=== PATIENT | female | born 1985 | race African-American/Black ===

== ENCOUNTER 2019-01-10 20:40 | Inpatient (IN) | payer MEDICAID ==
[2019-01-10] MEDS ORDERED: ACETAMINOPHEN 325 MG TABLET PO ONE (21:06)
[2019-01-10] MEDS ORDERED: NORMAL SALINE 1000 ML 1,000 ML IV ONE (21:07)
--- NOTE | 2019-01-10 21:09 | ER Document Report ---
ED Medical Screen (RME) - General Chief Complaint: Fever Stated Complaint: FEVER,POSS HSV OUTBREAK Time Seen by Provider: 01/10/19 21:05 Notes: 33-year-old female chief complaint of fevers, generalized body aches, occasional mild shortness of breath, some mild bloating of the abdomen. She states she has had fevers for the past 2 weeks. In [place], diagnosed with "herpes outbreak and viral meningitis", states that she did have a stiff neck and headache at that time but this did resolve. She states she felt better for a couple of days and now worse. Denies history of IV drug abuse. Other than HSV she states she was told she had polymyalgia rheumatica 10 years ago and was on a short course of prednisone but nothing since. TRAVEL OUTSIDE OF THE [place] IN LAST 30 DAYS: No - Related Data Allergies/Adverse Reactions: lisinopril Allergy (Verified 01/10/19 21:05) Penicillins Allergy (Verified 01/10/19 21:05) Past Medical History - Social History Chew tobacco use (# tins/day): No Frequency of alcohol use: None Drug Abuse: None Renal/ Medical History: Denies: Hx Peritoneal Dialysis Physical Exam - Vital signs Vitals: Temp Pulse Resp BP Pulse Ox 103.1 F H 132 H 17 131/79 H 96 01/10/19 20:47 01/10/19 20:47 01/10/19 20:47 01/10/19 20:47 01/10/19 20:47 - General General appearance: Appears well, Alert - Respiratory Respiratory status: No respiratory distress Breath sounds: No: Decreased air movement, Wheezing - Cardiovascular Rhythm: Regular, Tachycardia Heart sounds: Normal auscultation, S1 appreciated, S2 appreciated Course - Re-evaluation Re-evalutation: I have greeted and performed a rapid initial assessment of this patient. A comprehensive ED assessment and evaluation of the patient, analysis of test results and completion of the medical decision making process will be conducted by additional ED providers. - Vital Signs Vital signs: Temp Pulse Resp BP Pulse Ox 103.1 F H 132 H 17 131/79 H 96 01/10/19 20:47 01/10/19 20:47 01/10/19 20:47 01/10/19 20:47 01/10/19 20:47
--- NOTE | 2019-01-10 21:43 | RADIOLOGY REPORT (SQ) ---
EXAM DESCRIPTION: XR CHEST 2 VIEWS COMPLETED DATE/TME: 01/10/2019 21:05 CLINICAL HISTORY: 33 years, Female, ongoing fever Comparison: None FINDINGS: No focal lung consolidation. No pleural effusion. No pneumothorax. Cardiac and mediastinal silhouette is unremarkable. No acute osseous abnormality. Soft tissues are unremarkable. IMPRESSION: No acute findings. No focal lung consolidation.
--- NOTE | 2019-01-10 22:02 | ER Document Report ---
ED General - General Chief Complaint: Fever Stated Complaint: FEVER,POSS HSV OUTBREAK Time Seen by Provider: 01/10/19 21:05 Notes: Patient is a 33-year-old female with a past medical history of polymyalgia rheumatica not on any active treatment who presents due to concerns of ongoing fever for the past 2 to 3 weeks as well as a recent diagnosis of HSV "meningitis". Patient reports that 3 weeks ago she was seen in the emergency department in [place]. An infectious disease specialist was consulted as she had a fever with labial herpes as well as a headache and neck pain. 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 Patient completed that course effectively at noon today. She states that however over the last 2 weeks she is continued to have fever and has increasing shortness of breath and chest discomfort over the last 36 to 72 hours. She describes this as a aching, constant chest discomfort and that her shortness of breath is pervasive worsened with exertion. Nothing seems to improve her symptoms. She adamantly denies any ongoing headache or neck pain and states that her labial lesions have completely resolved. States that headache and neck pain resolved at least 5 to 6 days ago and have not recurred since that time. She has no history of similar symptoms in the past. Denies any cardiac history or history of pulmonary embolism. TRAVEL OUTSIDE OF THE [place] IN LAST 30 DAYS: No - Related Data Allergies/Adverse Reactions: lisinopril Allergy (Verified 01/10/19 21:05) Penicillins Allergy (Verified 01/10/19 21:05) Past Medical History - General Information source: Patient - Social History Smoking Status: Never Smoker Chew tobacco use (# tins/day): No Frequency of alcohol use: None Drug Abuse: None Lives with: Spouse/Significant other Family History: Reviewed & Not Pertinent Patient has suicidal ideation: No Patient has homicidal ideation: No Renal/ Medical History: Denies: Hx Peritoneal Dialysis Review of Systems - Review of Systems Notes: Constitutional: Positive for fever. HENT: Negative for sore throat. Eyes: Negative for visual changes. Cardiovascular: Positive for chest pain. Respiratory: Positive for shortness of breath Gastrointestinal: Negative for abdominal pain, vomiting or diarrhea. Genitourinary: Negative for dysuria. Musculoskeletal: Negative for back pain. Skin: Negative for rash. Neurological: Negative for headaches, weakness or numbness. 10 point ROS negative except as marked above and in HPI. Physical Exam - Vital signs Vitals: Temp Pulse Resp BP Pulse Ox 103.1 F H 132 H 17 131/79 H 96 01/10/19 20:47 01/10/19 20:47 01/10/19 20:47 01/10/19 20:47 01/10/19 20:47 Interpretation: Tachycardic, Febrile Notes: PHYSICAL EXAMINATION: GENERAL: Appears well and in no overt distress. HEAD: Atraumatic, normocephalic. EYES: Pupils equal round and reactive to light, extraocular movements intact, sclera anicteric, conjunctiva are normal. ENT: nares patent, oropharynx clear without exudates. Mildly dry mucous membranes. NECK: Normal range of motion, supple without lymphadenopathy LUNGS: Breath sounds clear to auscultation bilaterally and equal. No wheezes rales or rhonchi. HEART: Regular tachycardia without murmurs ABDOMEN: Soft, nontender, normoactive bowel sounds. No guarding, no rebound. No masses appreciated. EXTREMITIES: Normal range of motion, no pitting or edema. No cyanosis. NEUROLOGICAL: No focal neurological deficits. Moves all extremities spontaneou sly and on command. PSYCH: Normal mood, normal affect. SKIN: Warm, Dry, normal turgor, no rashes or lesions noted. Course - Re-evaluation Re-evalutation: 01/10/19 22:00 Patient presents with unusual history of having been chronically diagnosed with an agency for the meningitis 3 weeks ago in [place] after having a primary HSV outbreak in the labial region. She states that she was seen by infectious disease specialist in the emergency department setting of an LP was not performed and hospitalization was not advised. She has completed a full 14-day course of valacyclovir twice daily last dose at approximately noon today. She does note that the headache and neck pain that she had several weeks ago has ultimately resolved she is continued to have intermittent fevers throughout the duration of the last 2 weeks and the fevers escalated today. On exam the patient is extremely well in appearance alert, oriented mentating complete normally. She has no focal neurologic deficits on examination. She has no meningismus, normal neck range of motion. She denies any ongoing symptoms that would suggest a diagnosis of HSV encephalitis or meningitis. The patient is primarily complaining about shortness of breath abdominal bloating. She states that her breathing feels heavy. She is tachycardic and febrile at time of presentation. Chest x-ray does not demonstrate any evidence of associated pneumonia. She does not have a cough. Pulmonary embolus would also be on the differential although her temperature is quite high for this diagnosis. D-dimer will be sent for initial evaluation. Will obtain blood cultures, urine, urine cultures and standard laboratory panel. I do not believe the patient requires a repeat lumbar puncture at this point as she has no symptoms to suggest an acute meningitis or encephalitis picture and is already completed a full treatment course for HSV meningitis. She also reports that her labial lesions have completely resolved. 2300-patient remains tachycardic, normotensive, saturating 98% on room air. Continuing to rest without any overt discomfort. Labs are pending 2330-labs demonstrate a market elevation of d-dimer but are otherwise unremarkable. Patient will be sent for CTA of the chest as well as CT the abdomen pelvis given her complaints of associated abdominal pain 01/11/19 04:19 Documentation summarized from the last 2 hours. In summary the patient's CT of the chest was read and reviewed by me, does demonstrate a large pericarditis without significant drainable pericardial effusion. Also shows a possible left lower lobe pneumonia. I did discuss these findings with the patient. I then contacted the hospitalist Dr. Rhodes and reviewed the complex nature of the case as well as the need for hospitalization. He did request that I speak to cardiology. I did speak with the boat operator on-call who agrees that the patient is appropriate for hospitalization here at [facility]. Has requested echocardiogram, inflammatory markers and initiation of colchicine for treatment. I did discuss these recommendations with Dr. Rhodes who has now accept the patient for hospitalization. - Vital Signs Vital signs: Temp Pulse Resp BP Pulse Ox 99 F 77 18 108/69 100 01/11/19 01:18 01/11/19 01:18 01/11/19 01:18 01/11/19 01:18 01/11/19 01:18 - Laboratory Result Diagrams: 01/10/19 22:00 01/10/19 22:00 Laboratory results interpreted by me: 01/10/19 01/10/19 01/10/19 22:00 22:00 22:00 RBC 2.95 L Hgb 8.9 L Hct 26.5 L Seg Neutrophils % 78.6 H Lymphocytes % 10.4 L D-Dimer 7.62 H Sodium 133.1 L Glucose 111 H Urine Blood 01/10/19 22:00 RBC Hgb Hct Seg Neutrophils % Lymphocytes % D-Dimer Sodium Glucose Urine Blood MODERATE H - Diagnostic Test Radiology reviewed: Reports reviewed Critical Care Note - Critical Care Note Total time excluding time spent on procedures (mins): 36 Comments: Critical care time spent obtaining history from patient or surrogate, discussions with consultants, development of treatment plan with patient or surrogate, evaluation of patient's response to treatment, examination of patient, ordering and performing treatments and interventions, ordering and review of laboratory studies, re-evaluation of patient's condition, ordering and review of radiographic studies and review of old charts Discharge - Discharge Clinical Impression: Pericarditis Qualifiers: Pericarditis type: unspecified type Chronicity: acute Qualified Code(s): I30.9 - Acute pericarditis, unspecified Sepsis Qualifiers: Sepsis type: sepsis due to unspecified organism Qualified Code(s): A41.9 - Sepsis, unspecified organism Left lower lobe pneumonia Qualifiers: Pneumonia type: due to unspecified organism Qualified Code(s): J18.1 - Lobar pneumonia, unspecified organism Condition: Fair Disposition: ADMITTED INPATIENT Admitting Provider: Carmelo (Hospitalist) Unit Admitted: Telemetry
[2019-01-10 22:42] LABS: ABSOLUTE BASOPHILS # (AUTO) 0.1 10^3/uL (0.0-0.2); ABSOLUTE LYMPHOCYTES (AUTO) 1.1 10^3/uL (0.5-4.7); ABSOLUTE NEUT (AUTO) 7.9 10^3/uL (1.7-8.2); BASOPHILS % (AUTO) 0.6 % (0-2); EOSINOPHILS % (AUTO) 0.1 % (0-6); HEMATOCRIT 26.5 % (36.0-47.0); HEMOGLOBIN 8.9 g/dL (12.0-15.5); LYMPHOCYTES % (AUTO) 10.4 % (13-45); MEAN CORPUSCULAR HEMOGLOBIN 30.3 pg (27.0-33.4); MEAN CORPUSCULAR HGB CONC 33.7 g/dL (32.0-36.0); MEAN CORPUSCULAR VOLUME 90 fl (80-97); MONOCYTES % (AUTO) 10.3 % (3-13); PLATELET COUNT 444 10^3/uL (150-450); RED BLOOD COUNT 2.95 10^6/uL (3.72-5.28); SEGMENTED NEUTROPHILS % (AUTO) 78.6 % (42-78); TOTAL CELLS COUNTED % (AUTO) 100 %; WHITE BLOOD COUNT 10.1 10^3/uL (4.0-10.5)
[2019-01-10 22:48] LABS: APPEARANCE,URINE CLEAR; BILIRUBIN,URINE NEGATIVE (NEGATIVE); COLOR,URINE STRAW; GLUCOSE, URINE NEGATIVE (NEGATIVE); KETONES,URINE NEGATIVE (NEGATIVE); LEUKOCYTE ESTERASE,URINE NEGATIVE (NEGATIVE); NITRITE,URINE NEGATIVE (NEGATIVE); PROTEIN,URINE NEGATIVE (NEGATIVE); URINE SPECIFIC GRAVITY 1.003; UROBILINOGEN,URINE NEGATIVE mg/dL (<2.0)
[2019-01-10 23:06] LABS: ALANINE AMINOTRANSFERASE 29 U/L (9-52); ALBUMIN 3.5 g/dL (3.5-5.0); ALKALINE PHOSPHATASE 53 U/L (38-126); ANION GAP 11 (5-19); ASPARTATE AMINO TRANSFERASE 16 U/L (14-36); BILIRUBIN,DIRECT 0.3 mg/dL (0.0-0.4); BILIRUBIN,TOTAL 0.7 mg/dL (0.2-1.3); BLOOD UREA NITROGEN 8 mg/dL (7-20); CALCIUM 8.8 mg/dL (8.4-10.2); CARBON DIOXIDE 24 mmol/L (22-30); CHLORIDE 98 mmol/L (98-107); GLUCOSE 111 mg/dL (75-110); POTASSIUM 4.2 mmol/L (3.6-5.0); SODIUM 133.1 mmol/L (137-145); TOTAL PROTEIN 7.3 g/dL (6.3-8.2)
[2019-01-10 23:19] LABS: VENOUS BLOOD BASE EXCESS -1.2 mmol/L; VENOUS BLOOD HCO3 23.4 mmol/L (20-32); VENOUS BLOOD PCO2 38.9 mmHg (35-63); VENOUS BLOOD PH 7.4 (7.30-7.42)
--- NOTE | 2019-01-11 03:40 | RADIOLOGY REPORT (SQ) ---
EXAM DESCRIPTION: CT CHEST ANGIOGRAPHY WITHOUT THEN WITH IV CONTRAST, CT ABDOMEN PELVIS WITH IV CONTRAST COMPLETED DATE/TME: 01/11/2019 00:13 CLINICAL HISTORY: 33 years Female, eval pulm embolus, fever/cp/ab pain Comparison: None. Technique: IV contrast. Axial. 3-D reformat of the pulmonary arteries. This exam was performed according to our departmental dose-optimization program, which includes automated exposure control, adjustment of the mA and/or kV according to patient size and/or use of iterative reconstruction technique. [facility]: Dose Right [facility]: CareDose [facility]: Dose Right [facility]: Teradose 4D [facility]: [employer] LIMITATIONS: Quality of pulmonary arteriogram: Suboptimal. No coronal and sagittal reformats at this time. Findings: Small pericholecystic fluid. No pulmonary embolus. No right ventricular strain. Moderate left lower lobar dependent consolidated. Small streaky opacity of the right lower lobe. Small left pleural effusion. Moderate to large pericardial effusion. Small free pelvic fluid. . Large fibroid uterus with likely 6.4 cm exophytic subserosal fibroid extending to the right upper pelvis. 4.2 cm left adnexal cyst almost certainly benign. No ascites. Appendicolith(s) and/or retained contrast. No evidence of appendicitis. Inferior neck, axillae, mediastinum, airway, liver, pancreas, spleen, adrenals, renal system, gastrointestinal tract, pelvic organs, lymphatics, vasculature, and musculoskeleton appear otherwise unremarkable. Impression: 1. Small bilateral lower lobar pneumonia/atelectasis. Small left pleural effusion. 2. Moderate to large pericardial effusion/pericarditis. Differential etiologies include iatrogenic, inflammatory, metabolic, neoplastic, drug reaction, and trauma. 3. Small pericholecystic fluid. Small pelvic free fluid. 4. Large fibroid uterus with probable 6.4 cm right fundal exophytic component. Recommend ultrasound correlation.
[2019-01-11] MEDS ORDERED: KETOROLAC TROMETHAMINE INJ/PF 30 MG/1 ML SDV IV ONE ×2 (04:01→04:30)
[2019-01-11] MEDS ORDERED: COLCHICINE 0.6 MG TABLET PO ONE ×2 (04:01→04:30)
[2019-01-11] MEDS ORDERED: MAGNESIUM HYDROXIDE SUSP 30 ML UDCUP PO PRN (04:02)
[2019-01-11] MEDS ORDERED: MAG HYDROX/AL HYDROX/SIMETH SUSP 30 ML UDCUP PO PRN (04:02)
[2019-01-11] MEDS ORDERED: ACETAMINOPHEN 325 MG TABLET PO PRN (04:02)
[2019-01-11] MEDS ORDERED: IPRATROPIUM/ALBUTEROL 0.5-2.5 MG/3 ML AMPUL NEB PRN (04:02)
[2019-01-11] MEDS ORDERED: NORMAL SALINE 1000 ML 1,000 ML IV SCH (04:15)
[2019-01-11] MEDS ORDERED: KETOROLAC TROMETHAMINE INJ/PF 30 MG/1 ML SDV ONE (04:36)
[2019-01-11 05:09] LABS: CREATINE KINASE MB < 0.22 ng/mL (<4.55); TROPONIN I < 0.012 ng/mL
[2019-01-11 05:57] LABS: ABSOLUTE RETICS # 0.043 10^6/uL (0.028-0.122); RETICULOCYTE COUNT (AUTO) 1.38 % (0.66-2.85)
[2019-01-11 06:03] LABS: IRON(TIBC) 15.3 ug/dL (37-170)
--- NOTE | 2019-01-11 06:27 | PDOC H&P ---
History of Present Illness Admission Date/PCP: 01/11/19 04:45 MERLY SHINE MD Patient complains of: Shortness of breath and chest pain History of Present Illness: GAVIOTA PEÑA is a 33 year old female with a past medical history of questionable polymyalgia rheumatica who was diagnosed with primary genital HSV outbreak 3 weeks ago placed on acyclovir followed by HSV meningitis 2 weeks ago without LP. She presents with 10 days of shortness of breath and sharp retrosternal chest pain exacerbated by deep breathing. Symptoms were intermittently improved with Tylenol and ibuprofen but she is developed fever and fatigue prompting evaluation emergency room where she is found to have fever of 103.1, microcytic anemia, pericarditis by CTA chest. She is referred to the hospitalist for admission. Patient denies previous episode denies family history of autoimmune disease. Only new medication includes acyclovir discontinued 1 week ago. Past Medical History Cardiac Medical History: Reports: Hypertension Social History Information Source: Patient Lives with: Spouse/Significant other Smoking Status: Never Smoker Frequency of Alcohol Use: Rare Drugs: None - Advance Directive Resuscitation Status: Full Code Family History Family History: Other - Multiple sclerosis Parental Family History Reviewed: Yes Children Family History Reviewed: Yes Sibling(s) Family History Reviewed.: Yes Medication/Allergy Allergies/Adverse Reactions: lisinopril Allergy (Verified 01/10/19 21:05) Penicillins Allergy (Verified 01/10/19 21:05) Review of Systems Constitutional: PRESENT: as per HPI, anorexia, chills, fatigue, fever(s), headache(s). ABSENT: night sweats Eyes: ABSENT: visual disturbances Ears: ABSENT: hearing changes Cardiovascular: PRESENT: as per HPI, chest pain, dyspnea on exertion. ABSENT: edema, orthropnea, palpitations Respiratory: PRESENT: as per HPI, dyspnea. ABSENT: cough, hemoptysis, sputum Gastrointestinal: ABSENT: abdominal pain, constipation, diarrhea, hematemesis, hematochezia, nausea, vomiting Genitourinary: PRESENT: as per HPI. ABSENT: dysuria, hematuria Musculoskeletal: ABSENT: joint swelling Integumentary: ABSENT: rash, wounds Neurological: ABSENT: abnormal gait, abnormal speech, confusion, dizziness, focal weakness, syncope Psychiatric: ABSENT: anxiety, depression, homidical ideation, suicidal ideation Endocrine: ABSENT: cold intolerance, heat intolerance, polydipsia, polyuria Hematologic/Lymphatic: ABSENT: easy bleeding, easy bruising Physical Exam Vital Signs: Temp Pulse Resp BP Pulse Ox 99.7 F 101 H 20 120/82 96 01/11/19 05:53 01/11/19 05:53 01/11/19 05:53 01/11/19 05:53 01/11/19 05:53 Intake & Output 01/09/19 01/10/19 01/11/19 11:59 11:59 11:59 Intake Total 1000 Balance 1000 Weight 83.5 kg General appearance: PRESENT: cooperative, mild distress Head exam: PRESENT: atraumatic, normocephalic Eye exam: PRESENT: conjunctiva pink, EOMI, PERRLA. ABSENT: scleral icterus Ear exam: PRESENT: normal external ear exam Mouth exam: PRESENT: moist, tongue midline Neck exam: ABSENT: carotid bruit, JVD, lymphadenopathy, thyromegaly Respiratory exam: PRESENT: clear to auscultation christopher, crackles, decreased breath sounds. ABSENT: rales, rhonchi, wheezes Cardiovascular exam: PRESENT: RRR, rubs, +S1, +S2, systolic murmur, tachycardia Vascular exam: PRESENT: normal capillary refill GI/Abdominal exam: PRESENT: normal bowel sounds, soft. ABSENT: distended, guarding, mass, organolmegaly, rebound, tenderness Rectal exam: PRESENT: deferred Extremities exam: PRESENT: full ROM. ABSENT: calf tenderness, clubbing, pedal edema Neurological exam: PRESENT: alert, awake, oriented to person, oriented to place, oriented to time, oriented to situation, CN II-XII grossly intact. ABSENT: motor sensory deficit Psychiatric exam: PRESENT: appropriate affect, normal mood. ABSENT: homicidal ideation, suicidal ideation Skin exam: PRESENT: dry, intact, warm. ABSENT: cyanosis, rash Results Laboratory Results: 01/10/19 22:00 01/10/19 22:00 01/10/19 01/10/19 01/10/19 22:00 22:00 22:00 WBC 10.1 RBC 2.95 L Hgb 8.9 L Hct 26.5 L MCV 90 MCH 30.3 MCHC 33.7 RDW 13.0 Plt Count 444 Seg Neutrophils % 78.6 H Lymphocytes % 10.4 L Monocytes % 10.3 Eosinophils % 0.1 Basophils % 0.6 Absolute Neutrophils 7.9 Absolute Lymphocytes 1.1 Absolute Monocytes 1.0 Absolute Eosinophils 0.0 Absolute Basophils 0.1 Retic Count (auto) Absolute Retic VBG pH VBG pCO2 VBG HCO3 VBG Base Excess Sodium 133.1 L Potassium 4.2 Chloride 98 Carbon Dioxide 24 Anion Gap 11 BUN 8 Creatinine 0.58 Est GFR ( Amer) > 60 Est GFR (Non-Af Amer) > 60 Glucose 111 H Lactic Acid Calcium 8.8 Total Bilirubin 0.7 AST 16 ALT 29 Alkaline Phosphatase 53 C-Reactive Protein Total Protein 7.3 Albumin 3.5 Urine Color STRAW Urine Appearance CLEAR Urine pH 7.0 Ur Specific Anna 1.003 Urine Protein NEGATIVE Urine Glucose (UA) NEGATIVE Urine Ketones NEGATIVE Urine Blood MODERATE H Urine Nitrite NEGATIVE Ur Leukocyte Esterase NEGATIVE Urine WBC (Auto) 0 Urine RBC (Auto) 1 01/10/19 01/10/19 01/11/19 23:00 23:00 04:10 WBC RBC Hgb Hct MCV MCH MCHC RDW Plt Count Seg Neutrophils % Lymphocytes % Monocytes % Eosinophils % Basophils % Absolute Neutrophils Absolute Lymphocytes Absolute Monocytes Absolute Eosinophils Absolute Basophils Retic Count (auto) Absolute Retic VBG pH 7.40 VBG pCO2 38.9 VBG HCO3 23.4 VBG Base Excess -1.2 Sodium Potassium Chloride Carbon Dioxide Anion Gap BUN Creatinine Est GFR ( Amer) Est GFR (Non-Af Amer) Glucose Lactic Acid 0.7 Calcium Total Bilirubin AST ALT Alkaline Phosphatase C-Reactive Protein 210.4 H Total Protein Albumin Urine Color Urine Appearance Urine pH Ur Specific Anna Urine Protein Urine Glucose (UA) Urine Ketones Urine Blood Urine Nitrite Ur Leukocyte Esterase Urine WBC (Auto) Urine RBC (Auto) 01/11/19 04:10 WBC RBC Hgb Hct MCV MCH MCHC RDW Plt Count Seg Neutrophils % Lymphocytes % Monocytes % Eosinophils % Basophils % Absolute Neutrophils Absolute Lymphocytes Absolute Monocytes Absolute Eosinophils Absolute Basophils Retic Count (auto) 1.38 Absolute Retic 0.043 VBG pH VBG pCO2 VBG HCO3 VBG Base Excess Sodium Potassium Chloride Carbon Dioxide Anion Gap BUN Creatinine Est GFR ( Amer) Est GFR (Non-Af Amer) Glucose Lactic Acid Calcium Total Bilirubin AST ALT Alkaline Phosphatase C-Reactive Protein Total Protein Albumin Urine Color Urine Appearance Urine pH Ur Specific Anna Urine Protein Urine Glucose (UA) Urine Ketones Urine Blood Urine Nitrite Ur Leukocyte Esterase Urine WBC (Auto) Urine RBC (Auto) 01/11/19 01/11/19 04:10 04:10 Creatine Kinase 35 CK-MB (CK-2) < 0.22 Troponin I < 0.012 Impressions: Chest X-Ray 01/10/19 21:05 IMPRESSION: No acute findings. No focal lung consolidation. Assessment and Plan - Diagnosis (1) Left lower lobe pneumonia Qualifiers: Pneumonia type: due to unspecified organism Qualified Code(s): J18.1 - Lobar pneumonia, unspecified organism Is this a current diagnosis for this admission?: Yes Plan: Empiric antibiotics, albuterol and Atrovent, incentive spirometry follow-up blood culture and CBC (2) Pericarditis Qualifiers: Pericarditis type: unspecified type Chronicity: acute Qualified Code(s): I30.9 - Acute pericarditis, unspecified Is this a current diagnosis for this admission?: Yes Plan: With pleuritic chest pain and spectacular pericardial rub on auscultation. Infectious versus autoimmune, colchicine, IV Toradol initiated. Follow-up antineutrophil labs, echocardiogram and cardiology consult. (3) Sepsis Qualifiers: Sepsis type: sepsis due to unspecified organism Qualified Code(s): A41.9 - Sepsis, unspecified organism Is this a current diagnosis for this admission?: Yes Plan: Secondary to #1, IV fluid challenge, empiric antibiotics, follow-up blood culture - Time Time Spent with patient: 35 or more minutes - Inpatient Certification Medical Necessity: Need Close Monitoring Due to Risk of Patient Decompensation
[2019-01-11] MEDS ORDERED: LEVOFLOXACIN 750 MG/D5W RTU 750 MG/150 ML RTUPB IV ONE ×2 (07:00→12:00)
--- NOTE | 2019-01-11 07:59 | EKG REPORT ---
SEVERITY:- BORDERLINE ECG - SINUS TACHYCARDIA BORDERLINE T ABNORMALITIES, ANT-LAT LEADS : Confirmed by: Mervat Wheeler MD 11-Jan-2019 07:58:34
[2019-01-11] MEDS ORDERED: KETOROLAC TROMETHAMINE INJ/PF 30 MG/1 ML SDV IV SCH (09:00)
[2019-01-11] MEDS ORDERED: COLCHICINE 0.6 MG TABLET PO SCH (10:00)
[2019-01-11] MEDS: DOCUSATE SODIUM 100 MG CAPSULE PO SCH ×2 (10:27→18:25)
--- NOTE | 2019-01-11 10:39 | PDOC CONSULTATION ---
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 Couple of weeks ago patient was in [place] and was diagnosed with HSV meningitis and completed a course of antiviral therapy for 14 days. She claims that the symptoms she had with meningitis have resolved which included a headache stiff neck but a week into the treatment she started developing shortness of breath and discomfort in chest on deep breathing. She also developed fever every day for which she was taking ibuprofen and acetaminophen alternately. She came in last night to the ER with worsening shortness of breath and had a CAT scan of the chest done which revealed moderate large pericardial effusion. At this time she denies any chest pain or acute shortness of breath and seems to be resting comfortably in bed. She does report feeling better when she is upright rather than lying down flat as far as her breathing is concerned. She does complain of mild abdominal bloating but no nausea vomiting or abdominal pain. She also claims that more than 10 years ago she had developed a viral illness with diffuse body aches and at that time was seen in [place] and diagnosed with polymyalgia rheumatica for which she was treated with prednisone for a month or so and then prednisone was tapered off. She denies history of cigarette smoking or alcohol abuse or any recreational drug use. She is single at this time and works as a package designer. She claims that 1 of her uncles had heart disease in his 50s and his paternal grandfather also had heart disease. Past Medical History Cardiac Medical History: Reports: Hypertension Hematology: Reports: Anemia Past Surgical History Past Surgical History: Reports: Splenectomy, Other - Partial pancreatectomy for pancreatic cyst Social History Lives with: Spouse/Significant other Smoking Status: Never Smoker Frequency of Alcohol Use: Rare Drugs: None - Advance Directive Resuscitation Status: Full Code Family History Family History: Reviewed & Not Pertinent, Other - Multiple sclerosis Parental Family History Reviewed: Yes Children Family History Reviewed: No Sibling(s) Family History Reviewed.: No Medication/Allergy Home Medications: Amlodipine Besylate [Norvasc 5 mg Tablet] 5 mg PO DAILY 01/11/19 Norethindrone [Davida] 0.35 mg PO DAILY 01/11/19 Allergies/Adverse Reactions: lisinopril Allergy (Verified 01/10/19 21:05) Penicillins Allergy (Verified 01/10/19 21:05) Review of Systems Constitutional: PRESENT: fever(s) Cardiovascular: PRESENT: chest pain, dyspnea on exertion, orthropnea Gastrointestinal: PRESENT: bloating Physical Exam Vital Signs: Temp Pulse Resp BP Pulse Ox 98.2 F 113 H 12 125/89 H 97 01/11/19 08:31 01/11/19 07:59 01/11/19 08:31 01/11/19 08:31 01/11/19 07:46 Intake & Output 01/10/19 01/11/19 01/12/19 06:59 06:59 06:59 Intake Total 1000 Balance 1000 Weight 83.5 kg 83.178 kg General appearance: PRESENT: no acute distress Head exam: PRESENT: atraumatic, normocephalic Neck exam: PRESENT: full ROM - No JVD noted. Respiratory exam: PRESENT: clear to auscultation christopher - Pericardial rub heard. Pulses: PRESENT: normal carotid pulses, +2 pedal pulses bilateral Vascular exam: PRESENT: normal capillary refill GI/Abdominal exam: PRESENT: normal bowel sounds, soft Extremities exam: PRESENT: full ROM Neurological exam: PRESENT: alert, oriented to person, oriented to place, oriented to time, CN II-XII grossly intact Results Laboratory Results: 01/10/19 22:00 01/10/19 22:00 01/10/19 01/10/19 01/10/19 22:00 22:00 22:00 WBC 10.1 RBC 2.95 L Hgb 8.9 L Hct 26.5 L MCV 90 MCH 30.3 MCHC 33.7 RDW 13.0 Plt Count 444 Seg Neutrophils % 78.6 H Lymphocytes % 10.4 L Monocytes % 10.3 Eosinophils % 0.1 Basophils % 0.6 Absolute Neutrophils 7.9 Absolute Lymphocytes 1.1 Absolute Monocytes 1.0 Absolute Eosinophils 0.0 Absolute Basophils 0.1 Retic Count (auto) Absolute Retic VBG pH VBG pCO2 VBG HCO3 VBG Base Excess Sodium 133.1 L Potassium 4.2 Chloride 98 Carbon Dioxide 24 Anion Gap 11 BUN 8 Creatinine 0.58 Est GFR ( Amer) > 60 Est GFR (Non-Af Amer) > 60 Glucose 111 H Lactic Acid Calcium 8.8 Iron TIBC % Saturation Ferritin Total Bilirubin 0.7 AST 16 ALT 29 Alkaline Phosphatase 53 C-Reactive Protein Total Protein 7.3 Albumin 3.5 Vitamin B12 Folate Urine Color STRAW Urine Appearance CLEAR Urine pH 7.0 Ur Specific [place] 1.003 Urine Protein NEGATIVE Urine Glucose (UA) NEGATIVE Urine Ketones NEGATIVE Urine Blood MODERATE H Urine Nitrite NEGATIVE Ur Leukocyte Esterase NEGATIVE Urine WBC (Auto) 0 Urine RBC (Auto) 1 01/10/19 01/10/19 01/11/19 23:00 23:00 04:10 WBC RBC Hgb Hct MCV MCH MCHC RDW Plt Count Seg Neutrophils % Lymphocytes % Monocytes % Eosinophils % Basophils % Absolute Neutrophils Absolute Lymphocytes Absolute Monocytes Absolute Eosinophils Absolute Basophils Retic Count (auto) Absolute Retic VBG pH 7.40 VBG pCO2 38.9 VBG HCO3 23.4 VBG Base Excess -1.2 Sodium Potassium Chloride Carbon Dioxide Anion Gap BUN Creatinine Est GFR ( Amer) Est GFR (Non-Af Amer) Glucose Lactic Acid 0.7 Calcium Iron TIBC % Saturation Ferritin Total Bilirubin AST ALT Alkaline Phosphatase C-Reactive Protein 210.4 H Total Protein Albumin Vitamin B12 Folate Urine Color Urine Appearance Urine pH Ur Specific [place] Urine Protein Urine Glucose (UA) Urine Ketones Urine Blood Urine Nitrite Ur Leukocyte Esterase Urine WBC (Auto) Urine RBC (Auto) 01/11/19 01/11/19 04:10 04:10 WBC RBC Hgb Hct MCV MCH MCHC RDW Plt Count Seg Neutrophils % Lymphocytes % Monocytes % Eosinophils % Basophils % Absolute Neutrophils Absolute Lymphocytes Absolute Monocytes Absolute Eosinophils Absolute Basophils Retic Count (auto) 1.38 Absolute Retic 0.043 VBG pH VBG pCO2 VBG HCO3 VBG Base Excess Sodium Potassium Chloride Carbon Dioxide Anion Gap BUN Creatinine Est GFR ( Amer) Est GFR (Non-Af Amer) Glucose Lactic Acid Calcium Iron 15.3 L TIBC 267 % Saturation 6 Ferritin 135.00 Total Bilirubin AST ALT Alkaline Phosphatase C-Reactive Protein Total Protein Albumin Vitamin B12 328.0 Folate 11.70 Urine Color Urine Appearance Urine pH Ur Specific [place] Urine Protein Urine Glucose (UA) Urine Ketones Urine Blood Urine Nitrite Ur Leukocyte Esterase Urine WBC (Auto) Urine RBC (Auto) 01/11/19 01/11/19 04:10 04:10 Creatine Kinase 35 CK-MB (CK-2) < 0.22 Troponin I < 0.012 Impressions: Chest X-Ray 01/10/19 21:05 IMPRESSION: No acute findings. No focal lung consolidation. Status: Imported from PACS Assessment & Plan - Diagnosis (1) Acute pericarditis Qualifiers: Pericarditis type: unspecified type Qualified Code(s): I30.9 - Acute pericarditis, unspecified Is this a current diagnosis for this admission?: Yes (2) Pericardial effusion Is this a current diagnosis for this admission?: Yes (3) Anemia Qualifiers: Anemia type: unspecified type Qualified Code(s): D64.9 - Anemia, unspecified Is this a current diagnosis for this admission?: Yes - Notes Notes: Reviewed labs, EKG and imaging tests. Clinical picture compatible with acute pericarditis possibly infectious with history of recent viral illness. Recommend an echocardiogram to evaluate presence of pericardial effusion and to rule out any signs of increased intrapericardial pressure that may necessitate need for urgent pericardiocentesis, although clinically patient does not appear to be in Tamponade. Recommend treatment for acute pericarditis with high-dose NSAIDs along with colchicine 0.6 mg twice a day. Side effects of NSAID therapy and colchicine educated to the patient. Recommend GI prophylaxis with proton pump inhibitors. Patient does need work-up for her anemia. We discussed with patient need for regular immunization because of her prolonged splenectomy status and she admits to not having had any regular vaccinations for that purpose. CT scan of the chest also suggestive of consolidation and patient is being treated for possible pneumonia by primary team. Duration for colchicine therapy would be for 3 months and for NSAID therapy for at least 2 weeks and then to be tapered off depending on patient's clinical response to therapy. Further recommendations after reviewing echocardiogram results. Will follow closely with you. - Time Time Spent: 50 to 70 Minutes
[2019-01-11] MEDS: IBUPROFEN 600 MG TABLET PO PRN ×2 (11:58→23:30)
[2019-01-11 13:55] LABS: CREATINE KINASE MB < 0.22 ng/mL (<4.55); TROPONIN I < 0.012 ng/mL
[2019-01-11] MEDS: HEPARIN SOD (PORCINE) 5,000 UNIT/ML 1 ML SYRINGE SUBCUT SCH ×2 (14:57→21:49)
--- NOTE | 2019-01-11 14:59 | Progress Note ---
Provider Note Provider Note: This is a 73 years old black female patient who presented with chief complaint of shortness of breath and chest pain of 10 days duration. The chest pain is described as sharp precipitated by deep breathing and exacerbated by supine position. 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 Patient self with Tylenol and ibuprofen to no avail. Her CT of the chest reported as moderate severe pericardial effusion and pericardial thickening. Patient has been started on colchicine and Toradol. The Toradol was switched to ibuprofen 600 mg every 8 hours this morning patient evaluated by Dr. WOODALL who evaluated her echo and states the pericardial effusion is mild and there is no risk of pericardial tamponade. He recommended to treat her with colchicine 0.6 mg twice a day for 3 months this and nonsteroidal anti-inflammatory drug for 2 months. And follow-up with cardiology. This morning when I seen patient she reported some relief of her chest pain and shortness of breath.
--- NOTE | 2019-01-11 15:50 | XCELERA REPORT ---
[address] [address] Transthoracic Echocardiogram Report Name: GAVIOTA PEÑA Age: 33 yrs Gender: Female : 1985 Patient Status: Inpatient Patient Location: [address] [place], [place] [address] Study Date: 01/11/2019 01:22 PM Height: 64 in Weight: 184 lb BSA: 1.9 m2 Reason For Study: pericarditis Ordering Physician: MERLY SHINE Performed By: Vernell Pickard Interpretation Summary Study quality fair. LVEF appears normal at 60-65%. RV upper limit normal size with RV systolic function appearing normal. The left atrium is mildly dilated. The transmitral spectral Doppler flow pattern is normal for age There is a mild amount of mitral regurgitation The aortic valve is trileaflet. There is a trace amount of tricuspid regurgitation Right ventricular systolic pressure is normal. The inferior vena cava appeared normal The aortic root is normal size. Circumferential pericardial effusion that appears exudative and apear small in size with no convincing evidence of increased intrapericardial pressure with normal sized IVC and no RV diastolic collapse noted.. MMode/2D Measurements & Calculations RVDd: 3.5 cm LVIDd: 4.9 cm FS: 33.1 % Ao root diam: 2.5 cm IVSd: 0.88 cm LVIDs: 3.3 cm EDV(Teich): Ao root area: LVPWd: 0.90 cm 115.2 ml ESV(Teich): 44.4 ml4.9 cm2 ACS: 2.1 cm EF(Teich): 61.5 % LA dimension: 3.7 cm LVLd ap4: 8.0 cm SV(MOD-sp4): EDV(MOD-sp4): 55.0 ml 91.0 ml LVLs ap4: 6.1 cm ESV(MOD-sp4): 36.0 ml EF(MOD-sp4): 60.4 % Doppler Measurements & Calculations MV E max jennifer: MV P1/2t max jennifer: Ao V2 max: LV V1 max P.4 cm/sec 87.4 cm/sec 159.0 cm/sec 4.0 mmHg MV A max jennifer: MV P1/2t: 59.8 msec Ao max PG: LV V1 max: 72.1 cm/sec MVA(P1/2t): 3.7 cm2 10.1 mmHg 100.3 cm/sec MV E/A: 1.2 MV dec slope: 427.9 cm/sec2 PA V2 max: TR max jennifer: MV P1/2t-pr_phl: 84.4 cm/sec 191.0 cm/sec 59.8 msec PA max PG: TR max P.6 mmHg 2.8 mmHg Left Ventricle The left ventricular ejection fraction is normal. LV EF is 60-65%. The transmitral spectral Doppler flow pattern is normal for age. Right Ventricle A moderator band is seen in the right ventricle. RV upper size normal. The right ventricular systolic function is normal. Atria RA visually appears to be normal sized. The left atrium is mildly dilated. Mitral Valve Mitral valve leaflets appear focally thickened with preserved opening. There is a mild amount of mitral regurgitation. Aortic Valve The aortic valve opens well. The aortic valve is trileaflet. Focal thickening of valve leaflets noted. There is a peak gradient of 10 mm of Hg. Tricuspid Valve The tricuspid valve is not well visualized secondary to technical limitations. There is a trace amount of tricuspid regurgitation. Right ventricular systolic pressure is normal. Pulmonic Valve The pulmonic valve is not well visualized. Great Vessels The aortic root is normal size. The inferior vena cava appeared normal. Effusions Circumferential pericardial effusion that appears exudative and apear small in size with no convincing evidence of increased intrapericardial pressure with normal sized IVC and no RV diastolic collapse noted.. : MERLY SHINE > Franklin Aldana
[2019-01-11] MEDS: COLCHICINE 0.6 MG TABLET PO SCH (18:46)
[2019-01-11 21:21] LABS: CREATINE KINASE MB < 0.22 ng/mL (<4.55); TROPONIN I < 0.012 ng/mL
[2019-01-12] MEDS: PANTOPRAZOLE SODIUM 40 MG TABLET.DR PO SCH (05:53)
[2019-01-12] MEDS: HEPARIN SOD (PORCINE) 5,000 UNIT/ML 1 ML SYRINGE SUBCUT SCH ×3 (06:00→21:43)
[2019-01-12 06:04] LABS: ABSOLUTE LYMPHOCYTES (AUTO) 0.9 10^3/uL (0.5-4.7); TOTAL CELLS COUNTED % (AUTO) 100 %
[2019-01-12 06:17] LABS: ABSOLUTE BASOPHILS # (AUTO) 0.1 10^3/uL (0.0-0.2); ABSOLUTE MONOCYTES (AUTO) 0.6 10^3/uL (0.1-1.4); BASOPHILS % (AUTO) 1.8 % (0-2); EOSINOPHILS % (AUTO) 0.5 % (0-6); HEMATOCRIT 26.8 % (36.0-47.0); LYMPHOCYTES % (AUTO) 20.3 % (13-45); MEAN CORPUSCULAR HGB CONC 33.6 g/dL (32.0-36.0); MEAN CORPUSCULAR VOLUME 89 fl (80-97); MONOCYTES % (AUTO) 12.2 % (3-13); PLATELET COUNT 466 10^3/uL (150-450); RED BLOOD COUNT 2.99 10^6/uL (3.72-5.28); SEGMENTED NEUTROPHILS % (AUTO) 65.2 % (42-78); WHITE BLOOD COUNT 4.6 10^3/uL (4.0-10.5)
[2019-01-12 06:30] LABS: ANION GAP 12 (5-19); BLOOD UREA NITROGEN 8 mg/dL (7-20); CALCIUM 8.9 mg/dL (8.4-10.2); CARBON DIOXIDE 26 mmol/L (22-30); CHLORIDE 103 mmol/L (98-107); GLUCOSE 107 mg/dL (75-110); POTASSIUM 4.5 mmol/L (3.6-5.0); SODIUM 140.5 mmol/L (137-145)
[2019-01-12 06:49] LABS: ANISOCYTOSIS SLIGHT; HYPOCHROMASIA 1+; PLATELET COMMENT INCREASED; TARGET CELLS 2+
--- NOTE | 2019-01-12 09:44 | PDOC PROGRESS REPORT ---
Subjective Progress Note for:: 01/12/19 Subjective:: This is a 73 years old black female patient who presented with chief complaint of shortness of breath and chest pain of 10 days duration. The chest pain is described as sharp precipitated by deep breathing and exacerbated by supine position. 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 Patient self with Tylenol and ibuprofen to no avail. Her CT of the chest reported as moderate severe pericardial effusion and pericardial thickening. Patient has been started on colchicine and Toradol. The Toradol was switched to ibuprofen 600 mg every 8 hours this morning patient evaluated by Dr. WOODALL who evaluated her echo and states the pericardial effusion is mild and there is no risk of pericardial tamponade. He recommended to treat her with colchicine 0.6 mg twice a day for 3 months this and nonsteroidal anti-inflammatory drug for 2 months. And follow-up with cardiology. Patient seen while sitting upright in bed. She is awake alert oriented. Denies chest discomfort has been improving. Reason For Visit: PERICARDITIS ANEMIA Physical Exam Vital Signs: Temp Pulse Resp BP Pulse Ox 98.0 F 88 16 117/79 98 01/12/19 07:37 01/12/19 07:37 01/12/19 07:37 01/12/19 07:37 01/12/19 07:37 Intake & Output 01/11/19 01/12/19 01/13/19 06:59 06:59 06:59 Intake Total 1000 1470 Output Total 1198 Balance 1000 272 Weight 83.5 kg 83.2 kg General appearance: PRESENT: no acute distress, well-developed, well-nourished Head exam: PRESENT: atraumatic, normocephalic Eye exam: PRESENT: conjunctiva pink, EOMI, PERRLA. ABSENT: scleral icterus Ear exam: PRESENT: normal external ear exam Mouth exam: PRESENT: moist, tongue midline Neck exam: ABSENT: carotid bruit, JVD, lymphadenopathy, thyromegaly Respiratory exam: PRESENT: clear to auscultation christopher. ABSENT: rales, rhonchi, wheezes Cardiovascular exam: PRESENT: RRR. ABSENT: diastolic murmur, rubs, systolic murmur Pulses: PRESENT: normal dorsalis pedis pul Vascular exam: PRESENT: normal capillary refill GI/Abdominal exam: PRESENT: normal bowel sounds, soft. ABSENT: distended, guarding, mass, organolmegaly, rebound, tenderness Rectal exam: PRESENT: deferred Extremities exam: PRESENT: full ROM. ABSENT: calf tenderness, clubbing, pedal edema Neurological exam: PRESENT: alert, awake, oriented to person, oriented to place, oriented to time, oriented to situation, CN II-XII grossly intact. ABSENT: motor sensory deficit Psychiatric exam: PRESENT: appropriate affect, normal mood. ABSENT: homicidal ideation, suicidal ideation Skin exam: PRESENT: dry, intact, warm. ABSENT: cyanosis, rash Results Laboratory Results: 01/12/19 05:30 01/12/19 05:30 01/12/19 01/12/19 05:30 05:30 WBC 4.6 RBC 2.99 L Hgb 9.0 L Hct 26.8 L MCV 89 MCH 30.0 MCHC 33.6 RDW 13.0 Plt Count 466 H Seg Neutrophils % 65.2 Lymphocytes % 20.3 Monocytes % 12.2 Eosinophils % 0.5 Basophils % 1.8 Absolute Neutrophils 3.0 Absolute Lymphocytes 0.9 Absolute Monocytes 0.6 Absolute Eosinophils 0.0 Absolute Basophils 0.1 Sodium 140.5 Potassium 4.5 Chloride 103 Carbon Dioxide 26 Anion Gap 12 BUN 8 Creatinine 0.56 Est GFR ( Amer) > 60 Est GFR (Non-Af Amer) > 60 Glucose 107 Calcium 8.9 01/11/19 01/11/19 01/11/19 04:10 04:10 12:31 Creatine Kinase 35 27 L CK-MB (CK-2) < 0.22 Troponin I < 0.012 01/11/19 01/11/19 01/11/19 12:31 20:10 20:10 Creatine Kinase 35 CK-MB (CK-2) < 0.22 < 0.22 Troponin I < 0.012 < 0.012 Impressions: Chest X-Ray 01/10/19 21:05 IMPRESSION: No acute findings. No focal lung consolidation. Assessment and Plan - Diagnosis (1) Acute pericarditis / pericardial effusio Is this a current diagnosis for this admission?: Yes Plan: Patient has history of HSP skin outbreak and suspected HSV meningitis. Her CT scan and echocardiogram reveals pericardial effusion with pericardial thickening. Clinically she has classical pericardial friction rub. Patient has been on colchicine and ibuprofen. (2) Bilateral pneumonia Is this a current diagnosis for this admission?: Yes Plan: Continue IV Levaquin (3) Sepsis ruled out Is this a current diagnosis for this admission?: Yes (4) Hypertension Qualifiers: Hypertension type: essential hypertension Qualified Code(s): I10 - Essential (primary) hypertension Is this a current diagnosis for this admission?: Yes Plan: Continue home medication.
[2019-01-12] MEDS ORDERED: AMLODIPINE BESYLATE 5 MG TABLET PO SCH ×2 (10:00→18:00)
[2019-01-12] MEDS ORDERED: LEVOFLOXACIN 750 MG/D5W RTU 750 MG/150 ML RTUPB IV SCH (10:00)
--- NOTE | 2019-01-12 10:02 | PDOC PROGRESS REPORT ---
Subjective Progress Note for:: 01/12/19 Reason For Visit: PERICARDITIS ANEMIA Patient seen at bedside and denies any complaints of chest pain or acute shortness of breath. Denies any abdominal bloating at this time. Physical Exam Vital Signs: Temp Pulse Resp BP Pulse Ox 98.0 F 88 16 117/79 98 01/12/19 07:37 01/12/19 07:37 01/12/19 07:37 01/12/19 07:37 01/12/19 07:37 Intake & Output 01/11/19 01/12/19 01/13/19 06:59 06:59 06:59 Intake Total 1000 1470 Output Total 1198 Balance 1000 272 Weight 83.5 kg 83.2 kg General appearance: PRESENT: no acute distress Head exam: PRESENT: atraumatic, normocephalic Neck exam: PRESENT: full ROM Respiratory exam: PRESENT: clear to auscultation christopher, unlabored Cardiovascular exam: PRESENT: rubs, +S1, +S2 Pulses: PRESENT: normal carotid pulses, +2 pedal pulses bilateral GI/Abdominal exam: PRESENT: normal bowel sounds, soft Neurological exam: PRESENT: alert, oriented to person, oriented to place, oriented to time, CN II-XII grossly intact Results Laboratory Results: 01/12/19 05:30 01/12/19 05:30 01/12/19 01/12/19 05:30 05:30 WBC 4.6 RBC 2.99 L Hgb 9.0 L Hct 26.8 L MCV 89 MCH 30.0 MCHC 33.6 RDW 13.0 Plt Count 466 H Seg Neutrophils % 65.2 Lymphocytes % 20.3 Monocytes % 12.2 Eosinophils % 0.5 Basophils % 1.8 Absolute Neutrophils 3.0 Absolute Lymphocytes 0.9 Absolute Monocytes 0.6 Absolute Eosinophils 0.0 Absolute Basophils 0.1 Sodium 140.5 Potassium 4.5 Chloride 103 Carbon Dioxide 26 Anion Gap 12 BUN 8 Creatinine 0.56 Est GFR ( Amer) > 60 Est GFR (Non-Af Amer) > 60 Glucose 107 Calcium 8.9 01/11/19 01/11/19 01/11/19 04:10 04:10 12:31 Creatine Kinase 35 27 L CK-MB (CK-2) < 0.22 Troponin I < 0.012 01/11/19 01/11/19 01/11/19 12:31 20:10 20:10 Creatine Kinase 35 CK-MB (CK-2) < 0.22 < 0.22 Troponin I < 0.012 < 0.012 Impressions: Chest X-Ray 01/10/19 21:05 IMPRESSION: No acute findings. No focal lung consolidation. Assessment & Plan - Diagnosis (1) Acute pericarditis Qualifiers: Pericarditis type: unspecified type Qualified Code(s): I30.9 - Acute pericarditis, unspecified Is this a current diagnosis for this admission?: Yes (2) Pericardial effusion Is this a current diagnosis for this admission?: Yes (3) Anemia Qualifiers: Anemia type: unspecified type Qualified Code(s): D64.9 - Anemia, unspecified Is this a current diagnosis for this admission?: Yes - Notes Notes: Reviewed telemetry, labs, vitals and imaging tests. Echocardiogram shows ex udative pericardial effusion with no convincing evidence of increased intrapericardial pressure. Mild mitral regurgitation noted with normal LV ejection fraction. Patient on treatment with NSAID and colchicine for acute pericarditis. Will recommend gradual ambulation as tolerated and continued ob servation as inpatient for now. Dr. Wheeler to resume cardiology care tomorrow and patient will need close follow-up with him for management of her pericarditis. Anemia work-up per primary team. Patient mentions that she has history of hypertension and has been started on amlodipine by primary care team. We discussed activity limitations while she recovers from pericarditis and I answered all her questions regarding medical therapy. - Time Time with patient: 15-25 minutes
[2019-01-12] MEDS: DOCUSATE SODIUM 100 MG CAPSULE PO SCH ×2 (10:13→17:18)
[2019-01-12] MEDS: COLCHICINE 0.6 MG TABLET PO SCH ×2 (10:16→17:20)
[2019-01-12] MEDS: IBUPROFEN 600 MG TABLET PO PRN (17:21)
[2019-01-13] MEDS: PANTOPRAZOLE SODIUM 40 MG TABLET.DR PO SCH (06:36)
[2019-01-13] MEDS: HEPARIN SOD (PORCINE) 5,000 UNIT/ML 1 ML SYRINGE SUBCUT SCH (06:37)
[2019-01-13] MEDS: DOCUSATE SODIUM 100 MG CAPSULE PO SCH (09:27)
--- NOTE | 2019-01-13 09:38 | PDOC DISCHARGE SUMMARY ---
General - Admit/Disc Date/PCP Admission Date/Primary Care Provider: 01/11/19 04:45 MERLY SHINE MD Discharge Date: 01/13/19 - Discharge Diagnosis (1) Acute pericarditis / pericardial effusio Is this a current diagnosis for this admission?: Yes (2) Bilateral pneumonia Is this a current diagnosis for this admission?: Yes (3) Sepsis ruled out Is this a current diagnosis for this admission?: Yes (4) Hypertension Is this a current diagnosis for this admission?: Yes - Additional Information Resuscitation Status: Full Code Home Medications: Amlodipine Besylate [Norvasc 5 mg Tablet] 5 mg PO DAILY 01/11/19 Norethindrone [Davida] 0.35 mg PO DAILY 01/11/19 History of Present Illness History of Present Illness: GAVIOTA PEÑA is a 33 year old female with a past medical history of questionable polymyalgia rheumatica who was diagnosed with primary genital HSV outbreak 3 weeks ago placed on acyclovir followed by HSV meningitis 2 weeks ago without LP. She presents with 10 days of shortness of breath and sharp retrosternal chest pain exacerbated by deep breathing. Symptoms were intermittently improved with Tylenol and ibuprofen but she is developed fever and fatigue prompting evaluation emergency room where she is found to have fever of 103.1, microcytic anemia, pericarditis by CTA chest. She is referred to the hospitalist for admission. Patient denies previous episode denies family history of autoimmune disease. Only new medication includes acyclovir discontinued 1 week ago. Hospital Course Hospital Course: This is a 73 years old black female patient who presented with chief complaint of shortness of breath and chest pain of 10 days duration. The chest pain is described as sharp precipitated by deep breathing and exacerbated by supine position. 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 Patient self with Tylenol and ibuprofen to no avail. Her CT of the chest reported as moderate severe pericardial effusion and pericardial thickening. Patient has been started on colchicine and Toradol. The Toradol was switched to ibuprofen 600 mg every 8 hours this morning patient evaluated by Dr. WOODALL who evaluated her echo and states the pericardial effusion is mild and there is no risk of pericardial tamponade. He recommended to treat her with colchicine 0.6 mg twice a day for 3 months this and nonsteroidal anti-inflammatory drug for 2 months. This morning I seen patient sitting up on chair and enjoying her breakfast. She is awake alert oriented. She is not in pain or distress. She states that her chest discomfort has subsided. I will send her with colchicine and ibuprofen and will set up follow- up with Dr. Wheeler. Physical Exam Vital Signs: Temp Pulse Resp BP Pulse Ox 98.3 F 79 12 114/75 98 01/13/19 07:24 01/13/19 07:24 01/13/19 07:24 01/13/19 07:24 01/13/19 07:24 Intake & Output 01/12/19 01/13/19 01/14/19 06:59 06:59 06:59 Intake Total 1470 1885 Output Total 1198 Balance 272 1885 Weight 83.2 kg 83.5 kg General appearance: PRESENT: no acute distress, well-developed, well-nourished Head exam: PRESENT: atraumatic, normocephalic Eye exam: PRESENT: conjunctiva pink, EOMI, PERRLA. ABSENT: scleral icterus Ear exam: PRESENT: normal external ear exam Mouth exam: PRESENT: moist, tongue midline Neck exam: ABSENT: carotid bruit, JVD, lymphadenopathy, thyromegaly Respiratory exam: PRESENT: clear to auscultation christopher. ABSENT: rales, rhonchi, wheezes Cardiovascular exam: PRESENT: RRR. ABSENT: diastolic murmur, rubs, systolic murmur Pulses: PRESENT: normal dorsalis pedis pul Vascular exam: PRESENT: normal capillary refill GI/Abdominal exam: PRESENT: normal bowel sounds, soft. ABSENT: distended, guarding, mass, organolmegaly, rebound, tenderness Rectal exam: PRESENT: deferred Extremities exam: PRESENT: full ROM. ABSENT: calf tenderness, clubbing, pedal edema Neurological exam: PRESENT: alert, awake, oriented to person, oriented to place, oriented to time, oriented to situation, CN II-XII grossly intact. ABSENT: motor sensory deficit Psychiatric exam: PRESENT: appropriate affect, normal mood. ABSENT: homicidal ideation, suicidal ideation Skin exam: PRESENT: dry, intact, warm. ABSENT: cyanosis, rash Results Laboratory Results: 01/12/19 05:30 01/12/19 05:30 01/11/19 01/11/19 01/11/19 04:10 04:10 12:31 Creatine Kinase 35 27 L CK-MB (CK-2) < 0.22 Troponin I < 0.012 01/11/19 01/11/19 01/11/19 12:31 20:10 20:10 Creatine Kinase 35 CK-MB (CK-2) < 0.22 < 0.22 Troponin I < 0.012 < 0.012 Impressions: Chest X-Ray 01/10/19 21:05 IMPRESSION: No acute findings. No focal lung consolidation. Qualifiers - * PATIENT BEING DISCHARGED WITH ANY OF THE FOLLOWING DIAGNOSIS: No Acute Heart Failure Is this a Heart Failure Patient?: No
[2019-01-13] MEDS: COLCHICINE 0.6 MG TABLET PO SCH (09:58)
[2019-01-13 12:06] VITALS: BP 116/71
--- NOTE | 2019-01-13 19:24 | Progress Note ---
Provider Note Provider Note: CARDIOLOGY PROGRESS NOTE by Dr. Mervat Valencia on 01/13/2019. SUBJECTIVE: Dr. Knapp consult in progress note and patient's echo and other lab results were reviewed. The patient at present denies any chest pain or discomfort. There is no pleuritic chest pain or pericarditis. There is no PND orthopnea. There is no shortness of breath. There is no leg edema. There is no atrial or ventricular arrhythmia seen on the monitor. PHYSICAL EXAMINATION: The patient mildly obese. In no acute distress she is well-groomed. Selected Entries 01/13/19 07:24 Temperature 98.3 F Temperature Oral Source Pulse Rate 79 Respiratory 12 Rate Blood Pressure 114/75 Blood Pressure 88 Mean BP Location Right Arm BP Position Supine O2 Sat by Pulse 98 Oximetry Oxygen Delivery Room Air Method Head: Is atraumatic normocephalic. EYES: Pupils are equal round regular reactive light accommodation. Extraocular movements are normal. There is mild conjunctival pallor present. There is no scleral icterus. ENT: Is negative. SKIN: Is without any skin rashes or skin lesions. There is no particular ecchymosis. NECK: Is supple. There is no JVD. Carotids are equal there is no bruit. There is no lymphadenopathy. There is no goiter there is no accessory muscles or respiration use. TRACHEA CENTRAL. LUNGS: IS CLEAR TO AUSCULTATION PERCUSSION WITHOUT ANY RHONCHI RALES OR WHEEZING. Heart: S1-S2 is heard. There is no S3 gallop but there is no S4 gallop. There is a systolic murmur left sternal border and the apex without radiation. There is no rub of pericarditis. There is no pulsus paradoxus. ABDOMEN: Soft. Mildly obese. There is no hepatospleno megaly. There is no tender areas of masses. Bowel sounds well heard. EXTREMITIES: Femorals well felt. Leg pulses well felt. There is no pedal edema. There is no DVT or cellulitis. There is no calf tenderness. There is no cyanosis or clubbing. LAY OUT CARPENTER: The patient is conscious awake alert oriented x3 with no focal deficits. PSYCHIATRIC: The patient judgment insight are intact her affect is normal. 01/11/19 01/11/19 04:10 04:10 Rheumatoid Factor NEGATIVE Anti-Nuclear Antibody Pending IMPRESSION/RECOMMENDATION: 1. Pericarditis: Patient on colchicine has no chest pain. Note that the patient's rheumatoid arthritis factor is negative. Her JENNIFER is elevated. Most likely this is of viral etiology 2. Pericardial effusion: Small effusion by echo. Clinically no evidence of tamponade. 3. Anemia. Medications reviewed. Agree with continuing colchicine and tapering it off to off after some time. Management plan discussed with the attending physician Dr. Borrego, the attending physician on the case. Patient cardiac status is stable. She can be discharged. Patient encouraged to follow-up with me as an outpatient. We will get a repeat echo in 2 to 3 weeks. The patient has my cell phone number to call me in case of any emergencies. Medical decision making is of moderate complexity. Note the patient is full code. Her mother is her surrogate healthcare decision maker. Since the patient being discharged will sign off
[2019-01-14 14:37] LABS: ANTINUCLEAR ANTIBODIES Positive (Negative); RNP AB 4.9 AI (0.0-0.9); SJOGREN'S ANTI-SS-B AB <0.2 AI (0.0-0.9); SJOGREN'S SS-A ANTIBODY >8.0 AI (0.0-0.9); SMITH AB ANA <0.2 AI (0.0-0.9)
[2019-01-15 08:37] LABS: DNA DOUBLE STRAND ANTIBODY ANA <1 IU/mL (0-9)
== END 2019-01-13 13:43 | disposition home or self-care (01) | DRG 314 ==
LOC: ER 20:40 → EH 01-11 04:45 → 4S 01-11 07:39
PROVIDERS: ADMIT Internal Medicine; ATTEND Internal Medicine
PROC: 3E0F73Z Introduction of Anti-inflammatory into Respiratory Tract, Via Natural or Artificial Opening (ICD-10-PCS; principal; 2019-01-11)
DX: I30.9 Acute pericarditis, unspecified (principal); J18.1 Lobar pneumonia, unspecified organism; I10 Essential (primary) hypertension; D64.9 Anemia, unspecified; M35.3 Polymyalgia rheumatica; Z90.81 Acquired absence of spleen; Z90.411 Acquired partial absence of pancreas; Z88.0 Allergy status to penicillin; Z88.8 Allergy status to other drugs, medicaments and biological substances
CPT/HCPCS: 36415; 71046; 71275; 74177; 80048; 80053; 81001; 81025; 82550; 82553; 82607; 82728; 82746; 82803; 83540; 83550; 83605; 84484; 85025; 85045; 85379; 85652; 86038; 86140; 86430; 87040; 93005; 93010; 93306; 94799; 99291; J1885; J1956; J3490; J7030

== ENCOUNTER → 2019-04-16 | Outpatient (CLI) | payer SELFPAY | LOC: OD 12:22 | PROVIDERS: ATTEND Specialist | DX: I10 Essential (primary) hypertension (principal); I30.0 Acute nonspecific idiopathic pericarditis; E78.5 Hyperlipidemia, unspecified; Z79.899 Other long term (current) drug therapy | CPT/HCPCS: 36415; 85652; 86140 ==